=== PATIENT | female | born 1970 | race Caucasian/White ===

== ENCOUNTER 2017-04-26 19:04 | Outpatient (CLI) | payer OTHER ==
[~2017-04-26 19:04] MED LIST: AMLO10TA1 PO; IBUP-974 PO; ORE25 PO
== END 2017-04-26 20:39 | disposition home or self-care (01) ==
LOC: MRD 19:04
PROVIDERS: ATTEND Family Medicine
DX: M76.892 Other specified enthesopathies of left lower limb, excluding foot (principal)
CPT/HCPCS: 73562

== ENCOUNTER 2017-05-09 09:07 | Outpatient (CLI) | payer OTHER ==
[~2017-05-09 09:07] MED LIST changes: -AMLO10TA1 PO; +CLEOCIN HCL150 MG PO; +HCTZ PO; -IBUP-974 PO; +MOTRIN800 MG PO; +NORVASC10 M1 PO; +NORVASC10 MG PO; -ORE25 PO
== END 2017-05-09 20:15 | disposition home or self-care (01) ==
LOC: MLB 09:07
PROVIDERS: ATTEND Neuromusculoskeletal Medicine, Sports Medicine
DX: M25.469 Effusion, unspecified knee (principal)

== ENCOUNTER 2017-09-26 16:39 | Outpatient (CLI) | payer OTHER ==
[~2017-09-26 16:39] MED LIST changes: +AMLO10TA1 PO; -CLEOCIN HCL150 MG PO; -HCTZ PO; +IBUP-974 PO; -MOTRIN800 MG PO; -NORVASC10 M1 PO; -NORVASC10 MG PO; +ORE25 PO
[2017-09-26 18:10] LABS: ALBUMIN 3.7 g/dL (3.4-5.0); ANION GAP 15.9 (8-16); CARBON DIOXIDE 26.8 mmol/L (21-32); CHOL/HDL RATIO 3.1 (1-4.5); CREATININE 0.7 mg/dL (0.6-1.3); FREE T4 (FREE THYROXINE) 1.1 ng/dL (0.76-1.46); THYROID STIMULATING HORMONE 2.2 uIU/mL (0.34-3.74); TOTAL BILIRUBIN 0.6 mg/dL (0.0-1.0)
[2017-09-26 18:23] LABS: RED BLOOD CELL COUNT(AUTO) 4.58 MIL/uL (4.20-5.40); WHITE BLOOD COUNT (AUTO) 11.8 K/uL (4.8-10.8)
[2017-09-26 18:24] LABS: HEMATOCRIT 40.2 % (36-48); HEMOGLOBIN 13.4 g/dL (12.0-16.0); LYMPHOCYTES % (AUTO) 15.3 % (20.5-51.1); MEAN CORPUSCULAR HEMOGLOBIN 29 pg (27-31); MEAN CORPUSCULAR HGB CONC 33 g/dL (33-37); MEAN CORPUSCULAR VOLUME 88 fL (80-94); MONOCYTES % (AUTO) 4.7 % (1.7-9.3); NEUTROPHILS % (AUTO) 76.9 % (42.2-75.2); PLATELET COUNT (AUTO) 254 K/uL (140-450); RED CELL DISTRIBUTION WIDTH 13.9 % (11.6-13.7)
[2017-09-26 18:25] LABS: BASOPHILS # (AUTO) 0.2 K/uL (0.00-0.22); BASOPHILS % (AUTO) 1.7 % (0.0-2.0); EOSINOPHILS # (AUTO) 0.2 K/uL (0-0.4); EOSINOPHILS % (AUTO) 1.4 % (0.0-4.0); LYMPHOCYTES # (AUTO) 1.8 K/uL (2.5-16.5); MONOCYTES # (AUTO) 0.6 K/uL (0.8-1.0); NEUTROPHILS # (AUTO) 9.1 K/uL (1.8-7.7)
[2017-09-26 18:46] LABS: POTASSIUM 2.7 mmol/L (3.5-5.1)
== END 2017-09-26 19:45 | disposition home or self-care (01) ==
LOC: EEVIPCON 16:39 → MLB 16:39
PROVIDERS: ATTEND Student in an Organized Health Care Education/Training Program
DX: I10 Essential (primary) hypertension (principal); R00.2 Palpitations; R53.82 Chronic fatigue, unspecified; Z83.49 Family history of other endocrine, nutritional and metabolic diseases
CPT/HCPCS: 36415; 80053; 82306; 84439; 84443; 85025

== ENCOUNTER 2017-09-26 20:00 | Emergency (ER) | payer OTHER ==
[~2017-09-26] VITALS: Ht 170.2 cm; Wt 108.0 kg
[2017-09-26 20:02] VITALS: BP 145/90
--- NOTE | 2017-09-26 20:25 | NUR ---
AMBULATED TO ER BED 12
--- NOTE | 2017-09-26 20:30 | NUR ---
47/F CAME IN W C/O INTERMITTENT RT ARM AND RT LEG NUMBNESS AND TINGLING X 1MONTH. PT REPORTS SHE WAS SEEN BY PMD TODAY AND WAS ASKED TO GO TO ER FOR POTASSIUM LEVEL OF 2.3. DENIES SOB/CP/COUGH, - STROKE SYMPTOMS, DENIES N/V/D. PMH: HTN
[2017-09-26 21:08] LABS: ALBUMIN 3.5 g/dL (3.4-5.0); CARBON DIOXIDE 27.8 mmol/L (21-32); CREATININE 0.8 mg/dL (0.6-1.3); TOTAL BILIRUBIN 0.5 mg/dL (0.0-1.0)
[2017-09-26 21:10] LABS: POTASSIUM 2.8 mmol/L (3.5-5.1)
[2017-09-26] MEDS: POTASSIUM CHLORIDE 10 MEQ TABER PO ONE ×2 (21:16→22:20)
[2017-09-26] MEDS: ONDANSETRON 4 MG ODT PO ONE (21:43)
[2017-09-26 22:22] VITALS: BP 135/84
--- NOTE | 2017-09-26 22:22 | NUR ---
Patient discharged with v/s stable. Written and verbal after care instructions given and explained. Patient alert, oriented and verbalized understanding of instructions. Ambulatory with steady gait. All questions addressed prior to discharge. ID band removed. Patient advised to follow up with PMD. Rx of KDUR given. Patient educated on indication of medication including possible reaction and side effects. Opportunity to ask questions provided and answered.
== END 2017-09-26 22:22 | disposition home or self-care (01) ==
LOC: MED 20:00
DX: E87.6 Hypokalemia (principal); I10 Essential (primary) hypertension; Z79.899 Other long term (current) drug therapy; Z88.0 Allergy status to penicillin
CPT/HCPCS: 36415; 80053; 83735; 99284; S0119

== ENCOUNTER 2017-09-27 15:47 | Outpatient (CLI) | payer OTHER ==
[2017-09-27 17:00] LABS: CARBON DIOXIDE 27.3 mmol/L (21-32); CREATININE 0.7 mg/dL (0.6-1.3); POTASSIUM 3.3 mmol/L (3.5-5.1)
== END 2017-09-28 20:35 | disposition home or self-care (01) ==
LOC: MLB 15:47
PROVIDERS: ATTEND Student in an Organized Health Care Education/Training Program
DX: E87.6 Hypokalemia (principal)
CPT/HCPCS: 36415; 80048

== ENCOUNTER 2017-09-30 19:22 | Inpatient (IN) | payer OTHER ==
[~2017-09-30] VITALS: Ht 170.2 cm; Wt 107.5 kg
[2017-09-30 19:28] VITALS: BP 126/78
--- NOTE | 2017-09-30 19:40 | NUR ---
TO ER BED 02
--- NOTE | 2017-09-30 19:43 | NUR ---
47/F CAME IN C/O NONRADIATING SUBSTERNAL DISCOMFORT AND PALPITATIONS. DENIES 0/10 CHEST PAIN, REPORTS DYSPNEA WITH EXERTION. PT DENIES USE OF STIMULANTS, REPORTS PEPSI. PT REPORTS HAVING A VERBAL ALTERCATION WITH SON THAT MIGHT HAVE CAUSED PALPITATIONS, BUT UNSURE AT THIS MOMENT. PT REPORTS HAVING POTASSIUM 2.7 ON MONDAY, RECEIVED 80MEQ POTASSIUM AND PRESCRIPTION FOR 10MEQ BID. PMH HTN. ALLERGY TO PCN.
--- NOTE | 2017-09-30 19:45 | NUR ---
Patient being evaluated by physician at bedside.
[2017-09-30 20:28] LABS: BASOPHILS # (AUTO) 0.1 K/uL (0.00-0.22); BASOPHILS % (AUTO) 1.1 % (0.0-2.0); EOSINOPHILS # (AUTO) 0.3 K/uL (0-0.4); EOSINOPHILS % (AUTO) 3.1 % (0.0-4.0); HEMATOCRIT 40.8 % (36-48); HEMOGLOBIN 13.4 g/dL (12.0-16.0); LYMPHOCYTES # (AUTO) 1.9 K/uL (2.5-16.5); LYMPHOCYTES % (AUTO) 21.4 % (20.5-51.1); MEAN CORPUSCULAR HEMOGLOBIN 29 pg (27-31); MEAN CORPUSCULAR HGB CONC 33 g/dL (33-37); MEAN CORPUSCULAR VOLUME 88 fL (80-94); MONOCYTES # (AUTO) 0.8 K/uL (0.8-1.0); MONOCYTES % (AUTO) 8.8 % (1.7-9.3); NEUTROPHILS # (AUTO) 5.6 K/uL (1.8-7.7); NEUTROPHILS % (AUTO) 65.6 % (42.2-75.2); PLATELET COUNT (AUTO) 273 K/uL (140-450); RED BLOOD CELL COUNT(AUTO) 4.64 MIL/uL (4.20-5.40); RED CELL DISTRIBUTION WIDTH 12.9 % (11.6-13.7); WHITE BLOOD COUNT (AUTO) 8.7 K/uL (4.8-10.8)
[2017-09-30 20:34] LABS: APPEARANCE,URINE CLEAR (CLEAR); BILIRUBIN,URINE NEGATIVE (NEGATIVE); BLOOD, URINE TRACE-I (NEGATIVE); COLOR,URINE YELLOW (YELLOW); LEUKOCYTE ESTERASE ,URINE NEGATIVE (NEGATIVE); NITRITE, URINE NEGATIVE (NEGATIVE); UGLUCOSE NEGATIVE (NEGATIVE)
[2017-09-30 20:35] LABS: RBC,URINE 3-10 (FEW) /HPF (0-5); WBC,URINE 0-5 (RARE) /HPF (0-5)
[2017-09-30 20:44] LABS: ANION GAP 16.3 (8-16); CARBON DIOXIDE 24.3 mmol/L (21-32); CREATININE 0.7 mg/dL (0.6-1.3); POTASSIUM 3.6 mmol/L (3.5-5.1)
[2017-09-30 20:50] LABS: ALBUMIN 3.4 g/dL (3.4-5.0); TOTAL BILIRUBIN 0.3 mg/dL (0.0-1.0)
[2017-09-30 20:58] LABS: MAGNESIUM 2.2 mg/dL (1.8-2.4); PHOSPHORUS 2.7 mg/dL (2.5-4.9); THYROID STIMULATING HORMONE 2.94 uIU/mL (0.34-3.74)
[2017-09-30] MEDS: NACL 0.9% 1,000 ML IV SCH (22:24)
[2017-09-30] MEDS ORDERED: ONDANSETRON 4 MG/2 ML VIAL IM/IVP PRN (22:25)
[2017-09-30] MEDS ORDERED: HYDROcodone/APAP 7.5/325 MG 1 TAB PO PRN (22:25)
[2017-09-30] MEDS ORDERED: ACETAMINOPHEN 325 MG TAB PO PRN (22:25)
[2017-09-30] MEDS ORDERED: MORPHINE SULFATE 4 MG/ML SYR IVP PRN (22:25)
[2017-09-30] MEDS ORDERED: DOCUSATE SODIUM 100 MG GELCAP PO PRN (22:25)
--- NOTE | 2017-09-30 22:55 | NUR ---
Patient will be admitted to care of DR TRINIDAD. Admited to TELE. Will go to room 116. Belongings list completed. Report to ALEX.
[2017-09-30 23:00] VITALS: BP 130/79
--- NOTE | 2017-09-30 23:00 | NUR ---
PATIENT ADMITTED TO THE UNIT FROM ER. PATIENT IS AMBULATORY. NO SIGNS AND SYMPTOMS OF DISTRESS NOTED. NO SOB. NO COMPLAINTS OF PAIN AT THIS TIME. IV SITE NOTED ON LEFT HAND, 20 GAUGE, IV SITE ASYMPTOMATIC, INTACT AND PATENT. PLAN OF CARED DISCUSSED WITH PATIENT. PATIENT VERBALIZED UNDERSTANDING. BED IN LOWEST POSITION, SIDE RAILS UP AND CALL LIGHT WITHIN REACH WILL CONTINUE TO MONITOR.
[2017-09-30] MEDS ORDERED: NITROGLYCERIN 0.4 MG TAB SL PRN (23:05)
--- NOTE | 2017-09-30 23:15 | NUR ---
PATIENT SEEN BY DR. WARD.
[2017-09-30 23:25] LABS: CHOL/HDL RATIO 3.5 (1-4.5)
--- NOTE | 2017-09-30 23:30 | NUR ---
PATIENT'S SISTER PRESENT, VISITING PATIENT.
[2017-09-30] MEDS ORDERED: HYDR-3293 PO (23:37)
[2017-09-30 23:41] LABS: PROTHROMBIN TIME 10.4 secs (10.8-13.4)
[2017-09-30] MEDS ORDERED: POTA10TE30 PO (23:50)
--- NOTE | 2017-10-01 01:30 | NUR ---
CHECKED ON PATIENT PATIENT. IS RESTING COMFORTABLY IN BED WATCHING TV. NO SIGNS AND SYMPTOMS OF DISTRESS NOTED. WILL CONTINUE TO MONITOR.
[2017-10-01 04:00] VITALS: BP 103/68
--- NOTE | 2017-10-01 05:00 | NUR ---
CHECKED ON PATIENT. PATIENT IS ASLEEP. NO SIGNS AND SYMPTOMS OF DISTRESS NOTED. WILL CONTINUE TO MONITOR.
--- NOTE | 2017-10-01 07:10 | NUR ---
PATIENT REPORT GIVEN TO MORNING NURSE AT BEDSIDE. PATIENT IS IN STABLE CONDITION. WILL CONTINUE TO MONITOR.
--- NOTE | 2017-10-01 07:11 | NUR ---
RECEIVED REPORT FROM COOK CANDY NURSE FOR CONTINUITY OF CARE AT BEDSIDE. PATIENT RESTING IN BED WITH EYES CLOSED EASILY WOKEN. NO ACUTE DISTRESS NOTED. NO PALPITATIONS. CALL LIGHT WITHIN REACH. WILL CONT TO MONITOR PT.
[2017-10-01 07:12] LABS: BASOPHILS # (AUTO) 0.1 K/uL (0.00-0.22); BASOPHILS % (AUTO) 1.5 % (0.0-2.0); EOSINOPHILS # (AUTO) 0.2 K/uL (0-0.4); EOSINOPHILS % (AUTO) 2.7 % (0.0-4.0); HEMATOCRIT 36.3 % (36-48); HEMOGLOBIN 12.3 g/dL (12.0-16.0); LYMPHOCYTES # (AUTO) 1.7 K/uL (2.5-16.5); LYMPHOCYTES % (AUTO) 24.6 % (20.5-51.1); MEAN CORPUSCULAR HEMOGLOBIN 30 pg (27-31); MEAN CORPUSCULAR HGB CONC 34 g/dL (33-37); MEAN CORPUSCULAR VOLUME 87 fL (80-94); MONOCYTES # (AUTO) 0.5 K/uL (0.8-1.0); MONOCYTES % (AUTO) 7.7 % (1.7-9.3); NEUTROPHILS # (AUTO) 4.4 K/uL (1.8-7.7); NEUTROPHILS % (AUTO) 63.5 % (42.2-75.2); PLATELET COUNT (AUTO) 231 K/uL (140-450); RED BLOOD CELL COUNT(AUTO) 4.16 MIL/uL (4.20-5.40); RED CELL DISTRIBUTION WIDTH 13.3 % (11.6-13.7); WHITE BLOOD COUNT (AUTO) 6.9 K/uL (4.8-10.8)
[2017-10-01 07:25] LABS: ANION GAP 12.9 (8-16); CARBON DIOXIDE 25.5 mmol/L (21-32); CREATININE 0.7 mg/dL (0.6-1.3); POTASSIUM 3.4 mmol/L (3.5-5.1)
--- NOTE | 2017-10-01 07:45 | NUR ---
PATIENT ALERT AND ABLE TO VERBALIZE NEEDS. NO ACUTE DISTRESS NOTED. RESP EVEN AND UNLABORED. IV TO L HAND 20G WITH NS RUNNING AT 60ML/HR. VS COLLECTED. DURING THIS TIME PATIENT VERBALIZED FEELING PALPITATIONS. STAYED WITH PATIENT UNTIL THEY SUBSIDED. PATIENT ASYMPTOMATIC. INTERNAL MEDICINE DOCTOR SHOWED PVCS. PATIENT VS STABLE.CALL LIGHT WITHIN REACH. WILL CONT TO MONITOR.
[2017-10-01 08:00] VITALS: BP 148/55
[2017-10-01] MEDS ORDERED: amLODIPine 5 MG TAB PO SCH (09:00)
[2017-10-01] MEDS ORDERED: METOPROLOL SUCCINATE 50 MG TABER PO SCH (09:00)
[2017-10-01] MEDS ORDERED: LOSARTAN 50 MG TAB PO SCH (09:00)
[2017-10-01] MEDS ORDERED: HYDROCHLOROTHIAZIDE 25 MG TAB PO SCH (09:00)
[2017-10-01] MEDS ORDERED: ASPIRIN 81 MG TAB.CHEW PO SCH (09:00)
--- NOTE | 2017-10-01 09:12 | NUR ---
PATIENT ALERT AND ABLE TO VERBALIZE NEEDS. NO ACUTE DISTRESS NOTED. RESP EVEN AND UNLABORED. MORNING MEDICATION ADMINISTERED SCHEDULED PER MD ORDER. TOLERATED WELL. ANSWERED QUESTIONS REGARDING MEDICATION. PATIENT VERBALIZED UNDERSTANDING AND AGREEMENT. IV TO L HAND 20G WITH NS RUNNING AT 60ML/HR. CALL LIGHT WITHIN REACH. WILL CONT TO MONITOR.
[2017-10-01] MEDS ORDERED: POTASSIUM CHLORIDE 10 MEQ TABER PO SCH (10:00)
--- NOTE | 2017-10-01 10:41 | NUR ---
ADMINISTERED POTASSIUM TABLETS 40MEQ ORDERED. PATIENT REQUESTED PB&J SANDWICH PRIOR TO ADMINISTERING MEDICATION BECAUSE IT MAKES HER NAUSEATED WITHOUT FOOD. PATIENT TOLERATED WELL. CALL LIGHT WITHIN REACH. WILL CONT TO MONITOR PT.
[2017-10-01 12:00] VITALS: BP 111/79
--- NOTE | 2017-10-01 12:46 | NUR ---
PT ALERT AND ABLE TO VERBALIZE NEEDS. NO ACUTE DISTRESS NOTED. NO C/O PAIN. FAMILY AT BEDSIDE. VS GATHERED. NO C/O PALPITATIONS. CALL LIGHT WITHIN REACH. WILL CONT TO MONITOR PT.
--- NOTE | 2017-10-01 14:23 | NUR ---
PT ALERT AND ABLE TO MAKE NEEDS KNOWN. FAMILY AT BEDSIDE. NO ACUTE DISTRESS NOTED. NO C/O PALPITATIONS. CALL LIGHT WITHIN REACH. WILL CONT TO MONITOR.
[2017-10-01] MEDS: NACL 0.9% 1,000 ML IV SCH (15:04)
[2017-10-01 16:00] VITALS: BP 112/65
[2017-10-01] MEDS ORDERED: MAGN200T5 PO (16:17)
--- NOTE | 2017-10-01 16:30 | NUR ---
PT ALERT AND ABLE TO MAKE NEEDS KNOWN. FAMILY AT BEDSIDE. NO ACUTE DISTRESS NOTED. NO C/O PALPITATIONS. CALL LIGHT WITHIN REACH. WILL CONT TO MONITOR.
--- NOTE | 2017-10-01 17:30 | NUR ---
REVIEWED DISCHARGE INSTRUCTIONS WITH PT AT BEDSIDE. PATIENT VERBALIZED UNDERSTANDING AND AGREEMENT. ALL BELONGINGS ACCOUNTED FOR AND WITH PATIENT UPON DISCHARGE. DISCUSSED DISCHARGE INSTRUCTIONS WITH PATIENT IN PREFERRED LANGUAGE. IV LINE DCD . PT TOLERATED WELL. LUMEN INTACT. ID BANDS REMOVED. PATIENT TO BE ESCORTED OUT TO PRIVATE VEHICLE WHEN READY.
--- NOTE | 2017-10-01 17:40 | NUR ---
PT ESCORTED OUT TO PRIVATE VEHICLE. PATIENT WITH ALL BELONGINGS IN POSSESSION. LEFT FACILITY WITHOUT DIFFICULTY.
[2017-10-01] MEDS ORDERED: ATORVASTATIN 20 MG TAB PO SCH (21:00)
[2017-10-03 06:16] LABS: T4 (THYROXINE) 9.8 ug/dL (4.5-12.0)
== END 2017-10-01 17:40 | disposition home or self-care (01) | DRG 309 ==
LOC: MED 19:22 → MTU 22:28
PROVIDERS: ADMIT Family Medicine Sports Medicine; ATTEND Family Medicine Sports Medicine
DX: I49.3 Ventricular premature depolarization (principal); E44.1 Mild protein-calorie malnutrition; I10 Essential (primary) hypertension; E66.9 Obesity, unspecified; E87.6 Hypokalemia; I70.0 Atherosclerosis of aorta; Z88.0 Allergy status to penicillin; Z68.37 Body mass index [BMI] 37.0-37.9, adult
CPT/HCPCS: 36415; 71045; 80048; 80053; 81001; 81025; 82150; 83036; 83690; 83735; 83880; 84100; 84436; 84439; 84443; 84479; 84484; 85025; 85379; 85610; 85730; 87081; 93005; 99285; J7030; Q0092; Q0163

== ENCOUNTER 2017-10-05 13:36 | Outpatient (CLI) | payer OTHER ==
[~2017-10-05 13:36] MED LIST changes: +HYDR-3293 PO; +MAGN200T5 PO; +POTA10TE30 PO
[2017-10-05 14:08] LABS: ANION GAP 14.2 (8-16); CARBON DIOXIDE 26.5 mmol/L (21-32); POTASSIUM 3.7 mmol/L (3.5-5.1)
== END 2017-10-05 20:01 | disposition home or self-care (01) ==
LOC: MLB 13:36
PROVIDERS: ATTEND Student in an Organized Health Care Education/Training Program
DX: E87.6 Hypokalemia (principal); R00.2 Palpitations
CPT/HCPCS: 36415; 80051

== ENCOUNTER 2017-10-12 07:33 | Outpatient (CLI) | payer OTHER ==
[2017-10-12 09:17] LABS: ANION GAP 10.7 (8-16); CARBON DIOXIDE 30.1 mmol/L (21-32); POTASSIUM 3.8 mmol/L (3.5-5.1)
== END 2017-10-12 18:57 | disposition home or self-care (01) ==
LOC: MLB 07:33
PROVIDERS: ATTEND Student in an Organized Health Care Education/Training Program
DX: E87.6 Hypokalemia (principal)
CPT/HCPCS: 36415; 80051

== ENCOUNTER 2017-10-26 07:23 | Outpatient (CLI) | payer OTHER ==
[2017-10-26 08:55] LABS: ANION GAP 13.3 (8-16); POTASSIUM 3.3 mmol/L (3.5-5.1)
== END 2017-10-26 20:17 | disposition home or self-care (01) ==
LOC: MLB 07:23
PROVIDERS: ATTEND Student in an Organized Health Care Education/Training Program
DX: E87.6 Hypokalemia (principal); R00.2 Palpitations
CPT/HCPCS: 36415; 80051

== ENCOUNTER 2017-11-02 08:22 | Outpatient (CLI) | payer OTHER ==
[2017-11-02 10:51] LABS: ANION GAP 12.1 (8-16); CARBON DIOXIDE 28.6 mmol/L (21-32); POTASSIUM 3.7 mmol/L (3.5-5.1)
== END 2017-11-02 20:36 | disposition home or self-care (01) ==
LOC: MLB 08:22 → EDBD 08:22 → MLB 20:36
PROVIDERS: ATTEND Student in an Organized Health Care Education/Training Program
DX: E87.6 Hypokalemia (principal); R00.2 Palpitations; I10 Essential (primary) hypertension
CPT/HCPCS: 36415; 80051

== ENCOUNTER 2017-11-15 10:23 | Outpatient (CLI) | payer OTHER ==
[2017-11-15 10:57] LABS: ANION GAP 14.9 (8-16); CARBON DIOXIDE 22.7 mmol/L (21-32); CREATININE 0.7 mg/dL (0.6-1.3); POTASSIUM 3.6 mmol/L (3.5-5.1)
== END 2017-11-15 19:17 | disposition home or self-care (01) ==
LOC: MLB 10:23
PROVIDERS: ATTEND Student in an Organized Health Care Education/Training Program
DX: E87.6 Hypokalemia (principal); R00.2 Palpitations
CPT/HCPCS: 36415; 80048

== ENCOUNTER 2017-12-28 08:06 | Outpatient (CLI) | payer OTHER ==
[2017-12-28 08:51] LABS: ANION GAP 14.1 (8-16); CARBON DIOXIDE 26.5 mmol/L (21-32); CREATININE 0.8 mg/dL (0.6-1.3); POTASSIUM 3.6 mmol/L (3.5-5.1)
== END 2017-12-28 21:40 | disposition home or self-care (01) ==
LOC: MLB 08:06
PROVIDERS: ATTEND Student in an Organized Health Care Education/Training Program
DX: E87.6 Hypokalemia (principal); R25.2 Cramp and spasm; I10 Essential (primary) hypertension
CPT/HCPCS: 36415; 80048

== ENCOUNTER 2018-02-08 13:39 | Outpatient (CLI) | payer OTHER ==
[2018-02-08 14:46] LABS: ANION GAP 12.8 (8-16); CARBON DIOXIDE 26.1 mmol/L (21-32); CREATININE 0.7 mg/dL (0.6-1.3); POTASSIUM 3.9 mmol/L (3.5-5.1)
== END 2018-02-08 20:19 | disposition home or self-care (01) ==
LOC: MLB 13:39
PROVIDERS: ATTEND Student in an Organized Health Care Education/Training Program
DX: E87.6 Hypokalemia (principal); I10 Essential (primary) hypertension; Z79.899 Other long term (current) drug therapy
CPT/HCPCS: 36415; 80048

== ENCOUNTER 2018-09-20 06:57 | Outpatient (CLI) | payer OTHER ==
[2018-09-20 07:19] LABS: BASOPHILS % (AUTO) 0.4 % (0.0-2.0); EOSINOPHILS # (AUTO) 0.2 K/uL (0-0.4); EOSINOPHILS % (AUTO) 1.6 % (0.0-4.0); HEMATOCRIT 38.5 % (36-48); HEMOGLOBIN 12.7 g/dL (12.0-16.0); LYMPHOCYTES # (AUTO) 1.4 K/uL (2.5-16.5); LYMPHOCYTES % (AUTO) 13.4 % (20.5-51.1); MEAN CORPUSCULAR HEMOGLOBIN 29 pg (27-31); MEAN CORPUSCULAR HGB CONC 33 g/dL (33-37); MEAN CORPUSCULAR VOLUME 89.1 fL (80-94); MONOCYTES # (AUTO) 0.9 K/uL (0.8-1.0); MONOCYTES % (AUTO) 8.5 % (1.7-9.3); NEUTROPHILS # (AUTO) 7.8 K/uL (1.8-7.7); NEUTROPHILS % (AUTO) 76.1 % (42.2-75.2); PLATELET COUNT (AUTO) 265 K/uL (140-450); RED BLOOD CELL COUNT(AUTO) 4.33 MIL/uL (4.20-5.40); RED CELL DISTRIBUTION WIDTH 14.1 % (11.6-13.7); WHITE BLOOD COUNT (AUTO) 10.3 K/uL (4.8-10.8)
[2018-09-20 08:34] LABS: ALBUMIN 3.4 g/dL (3.4-5.0); ANION GAP 10.8 (8-16); CARBON DIOXIDE 26.7 mmol/L (21-32); CHOL/HDL RATIO 2.6 (1-4.5); CREATININE 0.7 mg/dL (0.6-1.3); POTASSIUM 3.5 mmol/L (3.5-5.1); THYROID STIMULATING HORMONE 3.69 uIU/mL (0.34-3.74)
== END 2018-09-20 20:41 | disposition home or self-care (01) ==
LOC: MLB 06:57
DX: Z01.419 Encounter for gynecological examination (general) (routine) without abnormal findings (principal); I10 Essential (primary) hypertension; Z88.0 Allergy status to penicillin
CPT/HCPCS: 36415; 80053; 84443; 85025

== ENCOUNTER 2019-06-19 07:05 | Outpatient (CLI) | payer OTHER ==
[2019-06-19 07:31] LABS: BASOPHILS % (AUTO) 0.8 % (0.0-2.0); EOSINOPHILS # (AUTO) 0.2 K/uL (0-0.4); HEMATOCRIT 38.4 % (36-48); HEMOGLOBIN 12.7 g/dL (12.0-16.0); LYMPHOCYTES # (AUTO) 1.1 K/uL (2.5-16.5); LYMPHOCYTES % (AUTO) 19.1 % (20.5-51.1); MEAN CORPUSCULAR HEMOGLOBIN 30 pg (27-31); MEAN CORPUSCULAR HGB CONC 33 g/dL (33-37); MEAN CORPUSCULAR VOLUME 90.4 fL (80-94); MONOCYTES # (AUTO) 0.4 K/uL (0.8-1.0); MONOCYTES % (AUTO) 7.5 % (1.7-9.3); NEUTROPHILS # (AUTO) 4.1 K/uL (1.8-7.7); NEUTROPHILS % (AUTO) 69.6 % (42.2-75.2); PLATELET COUNT (AUTO) 244 K/uL (140-450); RED BLOOD CELL COUNT(AUTO) 4.24 MIL/uL (4.20-5.40); WHITE BLOOD COUNT (AUTO) 5.8 K/uL (4.8-10.8)
[2019-06-19 08:05] LABS: ALBUMIN 3.5 g/dL (3.4-5.0); ANION GAP 11.7 (8-16); CARBON DIOXIDE 27.4 mmol/L (21-32); CHOL/HDL RATIO 3.4 (1-4.5); CREATININE 0.6 mg/dL (0.6-1.3); POTASSIUM 4.1 mmol/L (3.5-5.1); THYROID STIMULATING HORMONE 3.28 uIU/mL (0.34-3.74); TOTAL BILIRUBIN 0.7 mg/dL (0.0-1.0)
== END 2019-06-19 22:03 | disposition home or self-care (01) ==
LOC: MLB 07:05
DX: Z01.419 Encounter for gynecological examination (general) (routine) without abnormal findings (principal)
CPT/HCPCS: 36415; 80053; 82306; 83036; 84443; 85025

== ENCOUNTER 2019-10-04 11:55 | Outpatient (CLI) | payer OTHER | END 2019-10-04 21:16 | disposition home or self-care (01) | LOC: MRD 11:55 | PROVIDERS: ATTEND Neuromusculoskeletal Medicine, Sports Medicine | DX: M17.12 Unilateral primary osteoarthritis, left knee (principal) | CPT/HCPCS: 73562 ==

== ENCOUNTER 2020-02-13 13:52 | Emergency (ER) | payer OTHER ==
[~2020-02-13] VITALS: Ht 167.6 cm; Wt 95.3 kg
[2020-02-13 14:04] VITALS: BP 130/88
--- NOTE | 2020-02-13 14:05 | NUR ---
Pt outside in parking lot during triage and asked to wait in car for [facility]SE.
--- NOTE | 2020-02-13 14:06 | NUR ---
49/F presents to ED with complaints of sore throat, headache and body aches last Monday and Monday. Denies any symptoms today. Patient was working with another employee last week who now has tested positive for COVID and employer requesting patient be tested. Patient denies fever or chills. Denies cough at this time. VSS. Med hx: HTN.
--- NOTE | 2020-02-13 14:58 | NUR ---
Patient discharged with v/s stable. Written and verbal after care instructions given and explained. Patient alert, oriented and verbalized understanding of instructions. Ambulatory with steady gait. All questions addressed prior to discharge. ID band removed. Patient advised to follow up with PMD. Rx of PROMETHAZINE, LORATADINE & FLONASE given. Patient educated on indication of medication including possible reaction and side effects. Opportunity to ask questions provided and answered.
[2020-02-13 14:59] VITALS: BP 130/88
== END 2020-02-13 14:58 | disposition home or self-care (01) ==
LOC: EEVIPCON 13:52 → MED 13:52
DX: J30.89 Other allergic rhinitis (principal); I10 Essential (primary) hypertension; Z20.828 Contact with and (suspected) exposure to other viral communicable diseases; Z88.0 Allergy status to penicillin; Z79.899 Other long term (current) drug therapy
CPT/HCPCS: 99283; U0003

== ENCOUNTER 2020-06-24 14:50 | Emergency (ER) | payer OTHER ==
[~2020-06-24] VITALS: Ht 167.6 cm; Wt 111.1 kg
[2020-06-24 14:50] VITALS: BP 139/76
--- NOTE | 2020-06-24 14:57 | NUR ---
PT PRESENTS TO ED WITH COMPLAINTS OF "HEART FLUTTERING" AND PALPITATIONS STARTING TODAY. PT STATES SHE HAS HX OF HYPOKALEMIA AND STATES THIS HAPPENED LAST TIME AND HER POTASSIUM WAS LOW. PATIENT DENIES CHEST PAIN BUT FEELS SOB WITH DEEP INHALATION OR STATES "I FEEL LIKE I CAN'T CATCH MY BREATHE." VSS AT THIS TIME.
--- NOTE | 2020-06-24 16:03 | NUR ---
X-Ray at bedside.
[2020-06-24 16:09] LABS: BASOPHILS # (AUTO) 0.1 K/uL (0.00-0.22); BASOPHILS % (AUTO) 0.7 % (0.0-2.0); EOSINOPHILS # (AUTO) 0.2 K/uL (0-0.4); HEMOGLOBIN 13.2 g/dL (12.0-16.0); LYMPHOCYTES # (AUTO) 1.6 K/uL (2.5-16.5); LYMPHOCYTES % (AUTO) 14.7 % (20.5-51.1); MEAN CORPUSCULAR HEMOGLOBIN 30 pg (27-31); MEAN CORPUSCULAR HGB CONC 34 g/dL (33-37); MEAN CORPUSCULAR VOLUME 89.7 fL (80-94); MONOCYTES % (AUTO) 8.8 % (1.7-9.3); NEUTROPHILS # (AUTO) 8.1 K/uL (1.8-7.7); NEUTROPHILS % (AUTO) 73.8 % (42.2-75.2); PLATELET COUNT (AUTO) 254 K/uL (140-450); RED BLOOD CELL COUNT(AUTO) 4.35 MIL/uL (4.20-5.40); RED CELL DISTRIBUTION WIDTH 13.6 % (11.6-13.7)
[2020-06-24 16:27] LABS: ALBUMIN 3.6 g/dL (3.4-5.0); ANION GAP 15.9 (8-16); CARBON DIOXIDE 23.8 mmol/L (21-32); CREATININE 0.7 mg/dL (0.6-1.3); MAGNESIUM 1.9 mg/dL (1.8-2.4); POTASSIUM 3.7 mmol/L (3.5-5.1); TOTAL BILIRUBIN 0.4 mg/dL (0.0-1.0)
--- NOTE | 2020-06-24 17:47 | NUR ---
IV removed, catheter intact and site benign. Applied folded 2X2 gauze and tape to stop bleeding.
[2020-06-24 17:48] VITALS: BP 135/80
--- NOTE | 2020-06-24 17:48 | NUR ---
Patient discharged with v/s stable. Written and verbal after care instructions given and explained. Patient verbalized understanding. Ambulatory with steady gait. All questions addressed prior to discharge. Copies of EKG, labs and x-ray all given to patient for follow up. Advised to follow up with PMD.
== END 2020-06-24 17:48 | disposition home or self-care (01) ==
LOC: MED 14:50
DX: R00.2 Palpitations (principal); I10 Essential (primary) hypertension; Z88.0 Allergy status to penicillin; Z79.899 Other long term (current) drug therapy
CPT/HCPCS: 36415; 71045; 80053; 83735; 84484; 85025; 93005; 99285

== ENCOUNTER 2020-09-23 06:51 | Outpatient (CLI) | payer OTHER ==
[2020-09-23 07:54] LABS: BASOPHILS # (AUTO) 0.1 K/uL (0.00-0.22); EOSINOPHILS # (AUTO) 0.2 K/uL (0-0.4); EOSINOPHILS % (AUTO) 2.5 % (0.0-4.0); HEMATOCRIT 38.9 % (36-48); HEMOGLOBIN 13.2 g/dL (12.0-16.0); LYMPHOCYTES # (AUTO) 1.4 K/uL (2.5-16.5); LYMPHOCYTES % (AUTO) 16.3 % (20.5-51.1); MEAN CORPUSCULAR HEMOGLOBIN 30 pg (27-31); MEAN CORPUSCULAR HGB CONC 34 g/dL (33-37); MEAN CORPUSCULAR VOLUME 89.2 fL (80-94); MONOCYTES # (AUTO) 0.6 K/uL (0.8-1.0); MONOCYTES % (AUTO) 6.5 % (1.7-9.3); NEUTROPHILS # (AUTO) 6.5 K/uL (1.8-7.7); NEUTROPHILS % (AUTO) 73.7 % (42.2-75.2); PLATELET COUNT (AUTO) 251 K/uL (140-450); RED BLOOD CELL COUNT(AUTO) 4.36 MIL/uL (4.20-5.40); RED CELL DISTRIBUTION WIDTH 13.9 % (11.6-13.7); WHITE BLOOD COUNT (AUTO) 8.8 K/uL (4.8-10.8)
[2020-09-23 08:09] LABS: ALBUMIN 3.6 g/dL (3.4-5.0); ANION GAP 13.9 (8-16); BILIRUBIN,DIRECT 0.2 mg/dL (0.0-0.3); CARBON DIOXIDE 24.8 mmol/L (21-32); CREATININE 0.7 mg/dL (0.6-1.3); POTASSIUM 3.7 mmol/L (3.5-5.1); TOTAL BILIRUBIN 0.7 mg/dL (0.0-1.0)
== END 2020-09-23 21:43 | disposition home or self-care (01) ==
LOC: MLB 06:51
PROVIDERS: ATTEND Internal Medicine
DX: Z00.00 Encounter for general adult medical examination without abnormal findings (principal)
CPT/HCPCS: 36415; 80053; 80076; 82306; 85025

== ENCOUNTER 2021-11-04 07:00 | Outpatient (CLI) | payer OTHER ==
[~2021-11-04 07:00] MED LIST changes: +POTA10TA70 PO; -POTA10TE30 PO
[2021-11-04 07:23] LABS: BASOPHILS # (AUTO) 0.1 K/uL (0.00-0.22); BASOPHILS % (AUTO) 1.2 % (0.0-2.0); EOSINOPHILS # (AUTO) 0.2 K/uL (0-0.4); EOSINOPHILS % (AUTO) 3.3 % (0.0-4.0); HEMATOCRIT 39.6 % (36-48); HEMOGLOBIN 13.4 g/dL (12.0-16.0); LYMPHOCYTES # (AUTO) 1.4 K/uL (2.5-16.5); LYMPHOCYTES % (AUTO) 21.9 % (20.5-51.1); MEAN CORPUSCULAR HEMOGLOBIN 30 pg (27-31); MEAN CORPUSCULAR HGB CONC 34 g/dL (33-37); MEAN CORPUSCULAR VOLUME 88.9 fL (80-94); MONOCYTES # (AUTO) 0.5 K/uL (0.8-1.0); MONOCYTES % (AUTO) 7.8 % (1.7-9.3); NEUTROPHILS # (AUTO) 4.2 K/uL (1.8-7.7); NEUTROPHILS % (AUTO) 65.8 % (42.2-75.2); PLATELET COUNT (AUTO) 245 K/uL (140-450); RED BLOOD CELL COUNT(AUTO) 4.45 MIL/uL (4.20-5.40); RED CELL DISTRIBUTION WIDTH 13.6 % (11.6-13.7); WHITE BLOOD COUNT (AUTO) 6.4 K/uL (4.8-10.8)
[2021-11-04 08:01] LABS: APPEARANCE,URINE CLEAR (CLEAR); BILIRUBIN,URINE NEGATIVE (NEGATIVE); BLOOD, URINE NEGATIVE (NEGATIVE); COLOR,URINE YELLOW (YELLOW); LEUKOCYTE ESTERASE ,URINE NEGATIVE (NEGATIVE); NITRITE, URINE NEGATIVE (NEGATIVE); UGLUCOSE NEGATIVE (NEGATIVE)
[2021-11-04 08:02] LABS: ALBUMIN 3.8 g/dL (3.4-5.0); ANION GAP 14.3 (8-16); CARBON DIOXIDE 25.5 mmol/L (21-32); CHOL/HDL RATIO 2.9 (1-4.5); CREATININE 0.7 mg/dL (0.6-1.3); POTASSIUM 3.8 mmol/L (3.5-5.1); THYROID STIMULATING HORMONE 2.96 uIU/mL (0.34-3.74); TOTAL BILIRUBIN 0.7 mg/dL (0.0-1.0)
== END 2021-11-04 23:59 | disposition home or self-care (01) ==
LOC: MLB 07:00
PROVIDERS: ATTEND Family Medicine
DX: Z12.11 Encounter for screening for malignant neoplasm of colon (principal)
CPT/HCPCS: 36415; 80053; 81003; 84439; 84443; 85025

== ENCOUNTER 2022-06-03 08:09 | Outpatient (CLI) | payer OTHER ==
[2022-06-03 09:19] LABS: ALBUMIN 3.6 g/dL (3.4-5.0); BILIRUBIN,DIRECT 0.1 mg/dL (0.0-0.3); TOTAL BILIRUBIN 0.6 mg/dL (0.0-1.0)
[2022-06-03 10:33] LABS: CREATININE 0.8 mg/dL (0.6-1.3)
== END 2022-06-03 21:31 | disposition home or self-care (01) ==
LOC: MLB 08:09
PROVIDERS: ATTEND Podiatrist
DX: M79.671 Pain in right foot (principal); M72.2 Plantar fascial fibromatosis; B35.1 Tinea unguium; M76.61 Achilles tendinitis, right leg
CPT/HCPCS: 36415; 80076; 82565; 84520

== ENCOUNTER 2022-07-17 14:15 | Emergency (ER) | payer OTHER ==
[~2022-07-17] VITALS: Ht 167.6 cm; Wt 106.6 kg
[2022-07-17 14:29] VITALS: BP 134/74
--- NOTE | 2022-07-17 14:55 | NUR ---
52 Y/O FEMALE PRESENTS TO ED REQUESTING PAXLOVID, PT STATES TESTING POSITIVE FOR COVID 4DAYS AGO, PRESENTS WITH BODY ACHES, HEADACHE, RUNNY NOSE, COUGH. TOOK MOTRIN WITH MINIMAL RELIEF. ALLERGY: PCN PMH: HTN
[2022-07-17] MEDS ORDERED: IBUP-1842 PO (15:50)
[2022-07-17] MEDS ORDERED: BENZ200C4 PO (15:50)
[2022-07-17] MEDS ORDERED: NIRM1TAB PO (15:50)
[2022-07-17] MEDS ORDERED: BENZ-300 PO (15:50)
--- NOTE | 2022-07-17 16:09 | NUR ---
Patient discharged with v/s stable. Written and verbal after care instructions ABOUT COVID given and explained. Patient alert, oriented and verbalized understanding of instructions. Ambulatory with steady gait. All questions addressed prior to discharge. ID band removed. Patient advised to follow up with PMD. Rx of MOTRIN, PAXLOVID CO PACK, BENZONATATE, AND CEPACOL SORE THROAT given. Patient educated on indication of medication including possible reaction and side effects. Opportunity to ask questions provided and answered.
[2022-07-18] MEDS ORDERED: GAROS RIGHT EYE (14:32)
== END 2022-07-17 16:09 | disposition home or self-care (01) ==
LOC: MED 14:15
DX: U07.1 COVID-19 (principal); I10 Essential (primary) hypertension; Z79.899 Other long term (current) drug therapy; Z88.0 Allergy status to penicillin
CPT/HCPCS: 99283

== ENCOUNTER 2022-07-25 06:34 | Emergency (ER) | payer OTHER ==
[~2022-07-25] VITALS: Ht 167.6 cm; Wt 108.9 kg
[~2022-07-25 06:34] MED LIST changes: +BENZ-300 PO; +BENZ200C4 PO; +GAROS RIGHT EYE; +IBUP-1842 PO; +NIRM1TAB PO
[2022-07-25 06:38] VITALS: BP 142/78
--- NOTE | 2022-07-25 06:42 | NUR ---
PT TO 10
--- NOTE | 2022-07-25 06:59 | NUR ---
Dr. Ayala examining patient.
[2022-07-25] MEDS ORDERED: LORA1T1237 PO (07:06)
[2022-07-25] MEDS ORDERED: DOXY-690 PO (07:06)
[2022-07-25] MEDS ORDERED: SODI1PKT7 NS (07:06)
[2022-07-25 07:15] VITALS: BP 140/72
--- NOTE | 2022-07-25 07:15 | NUR ---
Patient discharged with v/s stable. Written and verbal after care instructions given and explained. Patient alert, oriented and verbalized understanding of instructions. Ambulatory with steady gait. All questions addressed prior to discharge. ID band removed. Patient advised to follow up with PMD. Rx of vibramycin,[id number],neilmed sinus given. Patient educated on indication of medication including possible reaction and side effects. Opportunity to ask questions provided and answered.
--- NOTE | 2022-07-25 07:19 | NUR ---
REPORT TO AWILDA
== END 2022-07-25 07:15 | disposition home or self-care (01) ==
LOC: MED 06:34
DX: U07.1 COVID-19 (principal); J32.9 Chronic sinusitis, unspecified; I10 Essential (primary) hypertension; Z79.899 Other long term (current) drug therapy
CPT/HCPCS: 99283

== ENCOUNTER 2022-12-15 06:54 | Outpatient (CLI) | payer OTHER ==
[~2022-12-15 06:54] MED LIST changes: +DOXY-690 PO; +LORA1T1237 PO; +SODI1PKT7 NS
[2022-12-15 07:58] LABS: BASOPHILS # (AUTO) 0.1 K/uL (0.00-0.22); BASOPHILS % (AUTO) 0.9 % (0.0-2.0); EOSINOPHILS # (AUTO) 0.2 K/uL (0-0.4); EOSINOPHILS % (AUTO) 2.3 % (0.0-4.0); HEMATOCRIT 39.7 % (36-48); HEMOGLOBIN 13.4 g/dL (12.0-16.0); LYMPHOCYTES # (AUTO) 1.5 K/uL (2.5-16.5); MEAN CORPUSCULAR HEMOGLOBIN 29 pg (27-31); MEAN CORPUSCULAR HGB CONC 34 g/dL (33-37); MEAN CORPUSCULAR VOLUME 87.3 fL (80-94); MONOCYTES # (AUTO) 0.6 K/uL (0.8-1.0); MONOCYTES % (AUTO) 7.2 % (1.7-9.3); NEUTROPHILS # (AUTO) 5.4 K/uL (1.8-7.7); NEUTROPHILS % (AUTO) 70.6 % (42.2-75.2); PLATELET COUNT (AUTO) 292 K/uL (140-450); RED BLOOD CELL COUNT(AUTO) 4.55 MIL/uL (4.20-5.40); RED CELL DISTRIBUTION WIDTH 14.2 % (11.6-13.7); WHITE BLOOD COUNT (AUTO) 7.7 K/uL (4.8-10.8)
[2022-12-15 09:53] LABS: ALBUMIN 3.8 g/dL (3.4-5.0); ANION GAP 13.1 (8-16); CARBON DIOXIDE 25.5 mmol/L (21-32); CREATININE 0.8 mg/dL (0.6-1.3); POTASSIUM 3.6 mmol/L (3.5-5.1); THYROID STIMULATING HORMONE 4.33 uIU/mL (0.34-3.74); TOTAL BILIRUBIN 0.8 mg/dL (0.0-1.0)
[2022-12-16 09:07] LABS: FOLLICLE STIMULATING HORMONE 16.6 mIU/mL (.)
== END 2022-12-15 20:44 | disposition home or self-care (01) ==
LOC: MLB 06:54
PROVIDERS: ATTEND Specialist
DX: Z01.419 Encounter for gynecological examination (general) (routine) without abnormal findings (principal); L65.9 Nonscarring hair loss, unspecified
CPT/HCPCS: 36415; 80053; 82306; 82670; 83001; 83036; 84402; 84403; 84443; 85025

== ENCOUNTER 2023-05-03 12:47 | Outpatient (CLI) | payer OTHER | END 2023-05-03 15:40 | disposition home or self-care (01) | LOC: MUS 12:47 | PROVIDERS: ATTEND Family Medicine | DX: M19.042 Primary osteoarthritis, left hand (principal); E03.9 Hypothyroidism, unspecified; M25.842 Other specified joint disorders, left hand; M79.645 Pain in left finger(s) | CPT/HCPCS: 73140; 76536 ==